=== PATIENT | female | born 1985 | race Caucasian/White ===

== ENCOUNTER 2020-12-22 21:08 | Emergency (ER) | payer BC, OTHER ==
[2020-12-22 21:16] VITALS: BP 117/79; PULSE 86; TEMP 98; BMI 29.1
== END 2020-12-23 00:52 | disposition home or self-care (01) ==
LOC: JERFT 21:08
PROC: 3E033NZ Introduction of Analgesics, Hypnotics, Sedatives into Peripheral Vein, Percutaneous Approach (ICD-10-PCS; principal; 2020-12-23)
PROC: 3E0337Z Introduction of Electrolytic and Water Balance Substance into Peripheral Vein, Percutaneous Approach (ICD-10-PCS; 2020-12-23)
DX: S93.601A Unspecified sprain of right foot, initial encounter (principal)
CPT/HCPCS: 73630-TC-RT-FY; 99284-25